=== PATIENT | female | born 1965 | race Caucasian/White ===

== ENCOUNTER 2019-03-10 23:58 | Emergency (ER) | payer OTHER ==
[2019-03-11] MEDS ORDERED: Simethicone 80 MG Tab.Chew PO ONE (00:39)
[2019-03-11] MEDS ORDERED: Aluminum Hydroxide/Magnesium Hydroxide/Simethicone Susp 30 ML Cup PO ONE (00:39)
--- NOTE | 2019-03-11 00:46 | EDM.PDOC ---
ED HPI GENERAL MEDICAL PROBLEM - General Chief Complaint: Abdominal Pain Stated Complaint: ABD/UPPER BACK PAIN Time Seen by Provider: 03/11/19 00:30 Source of Information: Reports: Patient, Old Records, RN History Limitations: Reports: No Limitations - History of Present Illness INITIAL COMMENTS - FREE TEXT/NARRATIVE: 54 yo female presents with upper abdomen and mid back discomfort that began about 9 pm tonight. Took some Tums without relief. Feels like she has gas build up. No fever, nausea, or vomiting. Bowels have been normal. Here with her . No past abdominal surgeries. 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) (antacid, CHENG's x 4) abd Pain Score (Numeric/FACES): 8 - Related Data Allergies Allergy/AdvReac Type Severity Reaction Status Date / Time No Known Allergies Allergy Verified 03/11/19 00:13 Home Meds: Home Meds NK [No Known Home Meds] 03/11/19 [History] Past Medical History HEENT History: Reports: Impaired Vision [employer] WORK[employer] History: Reports: Musculoskeletal History: Reports: Fracture, Other (See Below) Other Musculoskeletal History: left leg fracture - Infectious Disease History Infectious Disease History: Reports: Chicken Pox - Past Surgical History HEENT Surgical History: Reports: Adenoidectomy Social & Family History - Tobacco Use Smoking Status *Q: Never Smoker - Caffeine Use Caffeine Use: Reports: Coffee, Soda - Recreational Drug Use Recreational Drug Use: No ED ROS GENERAL - Review of Systems Review Of Systems: See Below Constitutional: Reports: No Symptoms Respiratory: Reports: No Symptoms Cardiovascular: Reports: No Symptoms GI/Abdominal: Reports: Abdominal Pain, Distension (mild). Denies: Black Stool, Bloody Stool, Constipation, Diarrhea, Decreased Appetite, Flatus, Hematochezia, Melena, Nausea, Vomiting : Reports: No Symptoms Musculoskeletal: Reports: No Symptoms Skin: Reports: No Symptoms Neurological: Reports: No Symptoms ED EXAM, GI/ABD - Physical Exam Exam: See Below Exam Limited By: No Limitations General Appearance: Alert, WD/WN, No Apparent Distress Eyes: Bilateral: Normal Appearance Ears: Normal External Exam, Normal Canal, Hearing Grossly Normal Nose: Normal Inspection, No Blood Throat/Mouth: Normal Inspection, Normal Lips, Normal Oropharynx, Normal Voice, No Airway Compromise Neck: Normal Inspection Respiratory/Chest: No Respiratory Distress, Lungs Clear, Normal Breath Sounds, No Accessory Muscle Use Cardiovascular: Regular Rate, Rhythm, No Edema GI/Abdominal Exam: Non-Tender (Pressing on abdomen in all areas does not increase her pain. ), Distended (mild, not dull with percussion.). No: No Distention, Guarding, Rigid, Rebound, Tender, Hernia Back Exam: Normal Inspection. No: CVA Tenderness (R), CVA Tenderness (L) Extremities: Normal Inspection, Normal Range of Motion, Non-Tender, No Pedal Edema Neurological: Alert, Oriented, CN II-XII Intact, Normal Cognition, No Motor/ Sensory Deficits Psychiatric: Normal Affect, Normal Mood Skin Exam: Warm, Dry, Intact, Normal Color, No Rash Course - Vital Signs Text/Narrative:: SX's completely went away, but just before she had her simethicone and Maalox. Last Recorded V/S: Last Vital Signs Temp 36.2 C 03/11/19 00:23 Pulse 87 03/11/19 00:23 Resp 16 03/11/19 00:23 BP 179/73 H 03/11/19 00:23 Pulse Ox 98 03/11/19 00:23 - Orders/Labs/Meds Labs: Laboratory Tests 03/11/19 03/11/19 Range/Units 00:45 00:45 WBC 10.5 (4.5-11.0) K/uL RBC 4.57 (3.30-5.50) M/uL Hgb 14.5 (12.0-15.0) g/dL Hct 43.2 (36.0-48.0) % MCV 95 (80-98) fL MCH 32 H (27-31) pg MCHC 34 (32-36) % Plt Count 200 (150-400) K/uL Sodium 142 (140-148) mmol/L Potassium 3.8 (3.6-5.2) mmol/L Chloride 105 (100-108) mmol/L Carbon Dioxide 29 (21-32) mmol/L Anion Gap 8.1 (5.0-14.0) mmol/L BUN 12 (7-18) mg/dL Creatinine 0.8 (0.6-1.0) mg/dL Est Cr Clr Drug Dosing 76.36 mL/min Estimated GFR (MDRD) > 60 (>60) Glucose 155 H (74-106) mg/dL Calcium 9.4 (8.5-10.1) mg/dL Total Bilirubin 0.6 (0.2-1.0) mg/dL AST 96 H (15-37) U/L ALT 62 (12-78) U/L Alkaline Phosphatase 65 (46-116) U/L Total Protein 7.5 (6.4-8.2) g/dL Albumin 3.7 (3.4-5.0) g/dL Globulin 3.8 H (2.3-3.5) g/dL Albumin/Globulin Ratio 1.0 L (1.2-2.2) Lipase 102 (73-393) U/L Meds: Medications Discontinued Medications Generic Name Dose Route Start Last Admin Trade Name Freq PRN Reason Stop Dose Admin Al Hydroxide/Mg Hydroxide 30 ml 03/11/19 00:39 03/11/19 00:44 Mag-Al Plus PO 03/11/19 00:40 30 ml ONETIME ONE Administration Simethicone 160 mg 03/11/19 00:39 03/11/19 00:45 Simethicone PO 03/11/19 00:40 160 mg ONETIME ONE Administration - Radiology Interpretation Free Text/Narrative:: Flat/upright abdominal X-rays- Departure - Departure Time of Disposition: 01:20 Disposition: Home, Self-Care 01 Condition: Good Clinical Impression: Biliary colic, Elevated blood pressure reading, Elevated blood sugar - Discharge Information *PRESCRIPTION DRUG MONITORING PROGRAM REVIEWED*: No *COPY OF PRESCRIPTION DRUG MONITORING REPORT IN PATIENT MITCH: No Instructions: Cholelithiasis, [id number] Referrals: Lucille Olivas MD [Primary Care Provider] - Forms: ED Department Discharge Additional Instructions: I suspect, not proven, that today's symptoms were from your gall bladder. I recommend you avoid fatty meals to reduce the likelihood of symptom recurrence. Discuss getting a gall bladder ultrasound with your primary care provider. Return as needed. Will also need more work up regarding you BP and blood sugars that are both higher than ideal.
--- NOTE | 2019-03-11 01:15 | CRLCR ---
INDICATION: Abdominal pain with bloating TECHNIQUE: Abdomen/Pelvis radiograph 4 views COMPARISON: None FINDINGS: Moderate degradation of image quality noted due to body habitus. Bowel: The bowel gas pattern is normal without evidence of bowel obstruction. The low pelvis is excluded. Soft tissue: No evidence of pneumoperitoneum present. No suspicious calcifications noted. Bone: A 1 cm sclerotic lesion is noted over the left iliac bone. IMPRESSION: 1. Unremarkable appearance of the visualized abdomen. 2. A 1 cm sclerotic lesion is noted over the left iliac bone. This may be a giant bone island but may warrant further evaluation if there is history of a primary malignancy. Dictated by: Martinez Ureña MD @ 03/11/2019 01:13:26 (Electronically Signed)
== END 2019-03-11 01:30 | disposition home or self-care (01) ==
LOC: JP.ED 23:58
DX: K80.50 Calculus of bile duct without cholangitis or cholecystitis without obstruction (principal); R03.0 Elevated blood-pressure reading, without diagnosis of hypertension; R73.9 Hyperglycemia, unspecified
CPT/HCPCS: 36415; 74019; 80053; 83690; 85027; 99284; A9270

== ENCOUNTER 2021-09-25 16:59 | Emergency (ER) | payer OTHER ==
[2021-09-25] MEDS ORDERED: Sodium Chloride 0.9% 10 ML Syringe FLUSH PRN (18:11)
[2021-09-25] MEDS ORDERED: Ondansetron 4 MG/2 ML SDV IVPUSH ONE (18:13)
[2021-09-25] MEDS ORDERED: Ketorolac 30 MG/ML SDV IVPUSH ONE (18:13)
[2021-09-25] MEDS ORDERED: Lactated Ringers 1,000 ML IV SCH (18:15)
[2021-09-25] MEDS ORDERED: Iopamidol 612 MG/ML 100 ML Bottle IV SCH (18:45)
[2021-09-25] MEDS ORDERED: Sodium Chloride 0.9% 75 ML IV SCH (18:45)
[2021-09-25 18:50] LABS: TROPONIN I HIGH SENSITIVITY 4.9 pg/mL (<=60.3)
== END 2021-09-25 21:35 | disposition home or self-care (01) ==
LOC: JP.ED 16:59
DX: K81.9 Cholecystitis, unspecified (principal); Z87.891 Personal history of nicotine dependence
CPT/HCPCS: 36415; 74177; 80053; 81001; 83605; 83690; 84484; 85025; 96361; 96374; 99284; 99284-25; J1885; J3490; J7120; Q9967